=== PATIENT | male | born 1980 | race Caucasian/White ===

== ENCOUNTER 2024-04-07 07:47 | Emergency (ER) | payer BC ==
[2024-04-07] MEDS: Tetracaine HCl/PF 0.5% 4 ML Bottle EYEBOTH ONE (08:13)
[2024-04-07] MEDS ORDERED: Ofloxacin 0.3% Ophth Soln 5 ML Bottle EYERT ONE (08:21)
[2024-04-07] MEDS: Ciprofloxacin 0.3% Ophth Soln 2.5 ML Bottle EYERT ONE (09:12)
== END 2024-04-07 09:15 | disposition home or self-care (01) ==
LOC: MW.ED 07:47
DX: H57.8A1 Foreign body sensation, right eye (principal); I10 Essential (primary) hypertension; Z79.899 Other long term (current) drug therapy; Z75.8 Other problems related to medical facilities and other health care
CPT/HCPCS: 99283; A9270-GY; J3490